=== PATIENT | male | born 1960 | race Caucasian/White ===

== ENCOUNTER 2024-08-13 04:57 | Emergency (ER) | payer BC ==
[~2024-08-13] VITALS: Ht 177.8 cm; Wt 93.0 kg
[~2024-08-13 04:57] MED LIST: AUGMENTIN 875-1 EACH PO; CLONAZEPAM1 MG PO; DEXILANT60 MG PO; FISH OIL 1,0001 EAC7 PO; MULTI-VITAMIN1 EACH PO; OMEPRAZOLE40 MG PO; PRAVASTATIN SOD40 MG PO; PREDNISONE20 MG PO; PROTONIX20 MG PO; TRICOR48 MG PO; ZETIA10 MG PO
[2024-08-13 05:00] VITALS: TEMP 97.7
[2024-08-13 05:24] LABS: BASOPHILS % 0.4 % (0.0-1.0); EOSINOPHILS # (AUTO) 0.3 (0.0-0.4); EOSINOPHILS % 3.7 % (0.0-6.0); HEMATOCRIT 44.5 % (38.2-49.6); HEMOGLOBIN 14.1 g/dL (14.0-18.0); LYMPHOCYTES # (AUTO) 2.6 (1.0-3.2); LYMPHOCYTES % 32.3 % (18.0-39.1); MEAN CORPUSCULAR HEMOGLOBIN 30.1 pg (28-32); MEAN CORPUSCULAR HGB CONC 31.7 g/dL (31-35); MEAN CORPUSCULAR VOLUME 95.1 fL (81-99); MONOCYTES # (AUTO) 0.6 (0.2-0.8); MONOCYTES % 7.6 % (4.4-11.3); NEUTROPHILS # (AUTO) 4.4 (2.1-6.9); NEUTROPHILS % 55.9 % (38.7-80.0); PLATELET COUNT 208 x10e3/uL (140-360); RED BLOOD COUNT 4.68 x10e6/uL (4.3-5.7); RED CELL DISTRIBUTION WIDTH 11.8 % (11.7-14.4); WHITE BLOOD COUNT 7.89 x10e3/uL (4.8-10.8)
[2024-08-13 05:33] LABS: BILIRUBIN,URINE NEGATIVE (NEGATIVE); CLARITY,URINE CLOUDY (CLEAR); COLOR,URINE PINK (YELLOW); GLUCOSE, URINE NEGATIVE (NEGATIVE); KETONES,URINE NEGATIVE (NEGATIVE); LEUKOCYTE ESTERASE ,URINE NEGATIVE (NEGATIVE); NITRITE,URINE NEGATIVE (NEGATIVE); PH,URINE 6 (5 - 7); PROTEIN,URINE DIPSTICK 1+ (NEGATIVE); URINE UROBILINOGEN 0.2 mg/dL (0.2 - 1)
[2024-08-13 05:37] LABS: INR 0.89; PROTHROMBIN TIME 12.6 seconds (11.9-14.5)
[2024-08-13 05:38] LABS: PARTIAL THROMBOPLASTIN TIME 27.4 seconds (23.8-35.5)
[2024-08-13 05:41] LABS: BACTERIA,URINE MANY /HPF; EPITHELIAL CELLS,URINE FEW /LPF; RBC,URINE >50 /HPF (0-5); RENAL EPITHELIAL CELLS,URINE FEW
[2024-08-13 05:43] LABS: ANION GAP 16.4 mmol/L (8-16); CALCIUM 9.9 mg/dL (8.4-10.2); CREATININE, SERUM 1.06 mg/dL (0.72-1.25)
[2024-08-13 05:47] LABS: POTASSIUM 3.4 mmol/L (3.5-5.1)
[2024-08-13] MEDS ORDERED: SODIUM CHLORIDE 0.9% 200 ML ONE (05:55)
[2024-08-13] MEDS ORDERED: IOPAMIDOL 370 MG/ML 100 ML INFUS..BTL INJ ONE (05:55)
[2024-08-13 06:39] VITALS: PULSE 84; RESP 18; O2SAT 98
[2024-08-13] MEDS ORDERED: CEFDINIR300 MG PO (07:39)
== END 2024-08-13 08:13 | disposition home or self-care (01) ==
LOC: ER 05:12
DX: N30.91 Cystitis, unspecified with hematuria (principal); R10.32 Left lower quadrant pain; E78.5 Hyperlipidemia, unspecified; Z87.19 Personal history of other diseases of the digestive system
CPT/HCPCS: 36415; 74178; 80048; 81001; 85025; 85610; 85730; 87086; 99284; J0696; J7050; Q9967